=== PATIENT | male | born 1950 | race Hispanic/Latino ===

== ENCOUNTER → 2017-03-03 | Day surgery (SDC) | payer OTHER, MEDICARE ==
--- NOTE | 2017-02-25 16:21 | PCM.ANEPRE ---
Anesthesia Pre-Op Review Reason for Review: CARDIAC HX-DEVELOPING ELDRIDGE/ANGINA RECENTLY Anesthesia Recommendations: Proceed with Procedure Additional Comments 66 y/o male with significant h/o CAD and hemorrhoids scheduled for internal hermorrhoidectomy on 03/03/17. S/p cardiac cath X 3 with stents in the right coronary artery and left circumflex. Last dean [employer] graduate studies visit on 08/2016 recommended cardiac cath. Last cardiac cath on showed "no new areas of stenosis" and no additional stents placed. Last NM myocardial perfusion stud on 07/24/16 showed EF 72% with no ischemia. Patient has exertional angina , but > 4 Mets. Is able to chop wood and cruz krys of hay. Appears optimized. Continue with surgery as planned pending evaluation by DOS anesthesiologist. Vinay Moulton MD Feb 25, 2017 16:21
[2017-03-03] VITALS (7 sets, daily range): BP systolic 105–134; BP diastolic 59–75; PULSE 51–78; RESP 8–17; O2SAT 95–100
[~2017-03-03] VITALS: Ht 188 cm; Wt 100.5 kg
[~2017-03-03] MED LIST: ASPI-973 PO; Bupivacaine-MPF 0.5% W/EPI 30 mL Inj INFILTRATE ONE; Dexamethasone 4 mg/mL Inj IVPUSH PRN; Dexamethasone 4 mg/mL Inj ONE; EPHEDrine Sulfate 50 mg/mL Inj IVPUSH PRN; HYDR30CR74 RC; HYDROmorphone 1 mg/mL Inj IVPUSH PRN; ISOS30TA4 PO; LEVO150T46 PO; Lactated Ringer's 1,000 ML IV ONE; Lactated Ringer's 1,000 ML IV SCH; Lactated Ringer's 500 ML IV PRN; METO50TA3 PO; MULT-666 PO; MetoCLOpramide 5 mg/mL 2 mL Inj IVPUSH PRN; NITR0.4T SL; Ondansetron 2 mg/mL 2 mL Inj IVPUSH PRN; Ondansetron 2 mg/mL 2 mL Inj ONE; POLY17PO6 PO; Phenylephrine 10,000 mCg/mL Inj IVPUSH PRN; Propofol 10,000 mCg/mL 20 mL Inj ONE; RANI300C PO; SIMV10TA4 PO; fentaNYL-PF 50 mCg/mL 2 mL Inj IVPUSH PRN; fentaNYL-PF 50 mCg/mL 2 mL Inj ONE; oxyCODONE-Acetamin 5-325 mg Tablet PO PRN
--- NOTE | 2017-03-03 08:40 | PCM.HPANE ---
Patient Data Date of Service: Mar 03, 2017 (0820) Surgeon Admitting Provider: Attending Provider:Brittany Huynh MD Primary Care Physician:Babatunde Adame MD Other Provider:Mary Kay Heard Anesthesia Reason for Visit Hemorrhoids Ht/WT & BMI Height (Feet): 6 Height (Inches): 2.00 Weight (Kilograms): 100.516 Body Mass Index 28.00 Allergies Coded Allergies: No Known Allergies (Verified , 02/25/17) Past Anesthesia History Anesthesia History: Denies:: Abnormal Airway, Anesthesia Reactions, Difficult Intubation, Fam Anesthesia Reaction, Fam Malignant Hypertherm, Malignant Hyperthermia Diabetes History Hx Diabetes?: No MRSA MRSA: No Medications Blood Thinner: Aspirin Home Meds Incl Beta Davey: Yes (mETROPOL) Date Beta Davey Taken: Mar 03, 2017 Time Beta Davey Taken: 0500 Reported Medications Hydrocortisone (Proctozone-Hc)30 Gm Cream.appl30 Gm RC BID PRN & PRN 02/25/17 Polyethylene Glycol 3350 (Miralax)17 Gm Powd.pack17 Gm PO DAILY 02/25/17 Isosorbide MN ER 30 Mg Tab.er.24h30 Mg PO DAILY 02/25/17 Nitroglycerin SL (Nitrostat)0.4 Mg Tab.subl0.4 Mg SL Q5MIN PRN ANGINA #1 BOTTLE 02/25/17 Simvastatin 10 Mg Dhjiup47 Mg PO HS Ref 0 10/19/16 Ranitidine 300 Mg Xldlztn654 Mg PO HS Ref 0 09/02/15 Multivitamin (Once Daily)1 Each Tablet1 Each PO DAILY 09/02/15 Metoprolol Tartrate 50 Mg Arluee50 Mg PO BID 30 Days Ref 0 09/02/15 Levothyroxine (Levoxyl)150 Mcg Rdzfdv709 Mcg PO DAILY Ref 0 09/02/15 Aspirin 81 Mg Zyfnzl619 Mg PO DAILY Ref 0 09/02/15 History History of ENT Problems?: No HEENT History: Positive for:: Dysphagia (HX OF) Denies:: Abnormal Airway Difficult Intubation Hearing Problem Denture Type: None Teeth Condition: Within Normal Limits Hx of Heart Problems?: Yes (currently asymptomatic. METS>4 EF 70%) Cardiovascular History: Positive for:: Cardiac Surgery (HEART CATH X3 (LAST ) STENTS RT CORONARY/LT CIRCUMFLEX) Chest Pain (ANGINA-DEVELOPED OVER LAST FEW MONTHS) Coronary Artery Disease (HX AL 2009) Hypertension (HYPERLIPIDEMIA) Valvular Heart Disease (MILD [place]) Denies:: AICD Atrial Fibrillation Heart Murmur (ECHO 09/2010 EF 50-55%) Irregular Heartbeat (PT REPORTS PALPITATIONS) Pacemaker Hx of Respiratory Problem?: Yes Respiratory History: Positive for:: Dyspnea (ELDRIDGE-DEVELOPED OVER LAST FEW MONTHS W/ ANGINA) Denies:: Use of C-PAP Machine Hx Neurologic Problems?: No Neurological History: Denies:: CVA Dementia Hx of GI Problems?: Yes Other GI Pertinent History: HX COLON POLYPS/TUBULAR ADENOMAS C/OF CHRONIC CONSTIPATION Hx of Problems?: No Male Hx: Denies:: Prostate Problems Scrotal Mass Testicular Surgery Skin History: Denies:: History Skin Disorders? Pressure Ulcers Hx Musculoskeletal Problems?: Yes Musculoskeletal History: Positive for:: Musculoskeletal Trauma (S/P RT WRIST RPR (?CTR),RT ROTATOR CUFF RPR HX FX ARM-CHILDHOOD) Denies:: Back Injury (C/OF LOWER BACK PAIN) Joint Replacement Hx of Psycho/Social Problems?: No Psycho Social History: Denies:: Anxiety Hx Depression Hx Surgeries?: Yes (CARPAL TUNNEL THYROIDECTOMY, RT WRIST, RT SHOULDER, HEMORRHOIDECTOMY,HEART ) Hx Any Other Health Problems?: Yes Other History: Positive for:: Cancer (FOLLICULAR LYMPHOMA, THYROID) Hospitalization (CARDIAC) Thyroid Disease (S/P RT THYROIDECTOMY FOR CA) Denies:: Endocrine Disease History Blood Transfusions: Denies:: Blood Transfusions Hx Diabetes: No Hx Alcohol Use: YesAlcoholic Drinks Per Day: 2/DAYHx Substance Use: No Smoking Status: Never Smoker Have You Smoked inLast 12 mo: No Stop/Bang S-Snoring: Do You Snore Loudly: No T-Tired: feel tired, fatigued: No O-Obsered: Observed not breath: No P-Blood Pressure: treated: Yes B- Body Mass Index > 35 kg/m2: No A- Age over 50: Yes N- Neck Large Circumference: No G- Gender Male: Yes COMFORT Total Score: 3 COMFORT Risk Assessment: Low Risk, <3 Yes Risk Assessment Category Category 1A: Patient has history of documented sleep apnea, and HAS NOT received any narcotic, sedative or anesthesia administration during this stay. Category 1B: Patient has history of documented sleep apnea, and HAS received any narcotic , sedative or anesthesia administration during this stay Category 2: Patient has SUSPECTED Obstructive Sleep Apnea, and HAS received any narcotic , sedative or anesthesia administration during this stay. Category 3: Patient has SUSPECTED Obstructive Sleep Apnea and HAS NOT received narcotic, sedative or anesthesia administration during this stay. Category 4: Outpatient in Procedural Areas with known sleep apnea or who screen positive for High Risk via the STOP/BANG questionnaire. Exam Exam Vital Signs Vital Signs Date Time Temp Pulse Resp B/P Pulse Ox O2 Delivery O2 Flow Rate FiO2 03/03/17 06:49 35.7 58 17 121/75 95 Room Air General Appearance: Alert, Oriented X3, Cooperative HEENT/AIRWAY: MP 1 Lungs: Clear to Auscultation Heart: Exam Unremarkable Meds/Labs/Diagnostics Admission Meds Current Medications Lactated Ringer's (Lr) 1,000 ml @ ud STK-MED ONCE IV Last administered on 03/03t 07:07; Start 03/03/17 at 07:07; Stop 03/03/17 at 07:08; Status DC Plan Impression Patient chart reviewed, patient interviewed and anesthestic plan with risks, benefits, and alternatives discussed, and informed consent obtained. NPO per Anesth. Guidelines: Yes ASA Physical Status: ASA2 Mod Systemic Disease Anesthetic Plan: GA Bene/Risks/Altern/Consents: Yes HP Complete Prior to Induction: Yes Damian Ruiz MD Mar 03, 2017 08:39
--- NOTE | 2017-03-03 09:08 | PCM.ANEP1 ---
Post Anesthesia PACU Phase 1 Assessment Vital Signs 36.3, 54, 12, 108/59, 97% Vital Signs Date Time Temp Pulse Resp B/P Pulse Ox O2 Delivery O2 Flow Rate FiO2 03/03/17 09:03 36.3 58 8 108/59 97 Simple Mask 8 03/03/17 06:49 35.7 58 17 121/75 95 Room Air Anesthetic Administered: GA Level of Alertness: Awake, talking GIBSON's with Equal Strength: Yes Pain: No Pain Scale Score: 0 Nausea or Vomiting: No CV Function & Hydration Stable: Yes Airway Device: none Oxygen Delivery: Simple Mask Lungs: Clear to Auscultation Dermatome Level: Full Sensation Summary uneventful GA PACU Phase 2 Assessment Complications: No Follow up Care: No Patient Instructions Provided: N/A Damain Ruiz MD Mar 03, 2017 09:08
--- NOTE | 2017-03-03 10:03 | OP ---
[address] [address] OPERATIVE REPORT PATIENT: ROZ MICHEL : 1950 MR#: [id number] ADMIT: 03/03/2017 JOB ID: [id number] DATE OF SURGERY: 03/03/2017 PREOPERATIVE DIAGNOSIS(ES): Symptomatic internal hemorrhoids. POSTOPERATIVE DIAGNOSIS(ES): Symptomatic internal hemorrhoids. PROCEDURE PERFORMED: Internal hemorrhoidectomy x3. SURGEON: Brittany Huynh MD MUSEUM OR ZOO DIRECTOR: Fuad Platt PA-C HISTORY OF PRESENT ILLNESS: This is a 66-year-old man, who was seen in the outpatient clinic with hemorrhoidal symptoms, particularly pain, bleeding, and prolapse with occasional manual reduction. This was refractory to conservative measures including laxatives and avoidance of spending long periods of time on the toilet. He had also tried topical hemorrhoidal creams without affect. Banding was attempted in the clinic. However, his hemorrhoids had a wide base and therefore the bands could not be effective. Therefore, examination under anesthesia was booked. FINDINGS: 1. Three enlarged internal hemorrhoids at the right posterolateral, left posterolateral, and left anterolateral positions. 2. Tiny anal fissure at the anterior midline. 3. Tiny external hemorrhoidal skin tags. DESCRIPTION OF PROCEDURE: The patient was brought to the operating room and placed in supine position. General anesthesia was induced. A warming blanket was placed. He was placed in high lithotomy position. The operative field was prepped and draped in sterile fashion. A pause was performed to confirm the correct patient, procedure, and site. External examination revealed external hemorrhoidal skin tags which were small, and a posterior midline anal fissure. A digital rectal examination was performed and was normal. A retractor was inserted and revealed several internal hemorrhoids which were enlarged and moderately friable. The largest of these were removed with a Precise LigaSure device, with preservation of the sphincters. The three that were removed were at the right posterolateral position, left posterolateral position, and left anterolateral position. Each of these was approximately 1.5 cm in size. They were discarded. Marcaine, 0.5%, with epinephrine was then infused in the subcutaneous tissue around the anus. The patient was awakened from general anesthesia and taken to postoperative care unit in good condition. ASSESSMENT: Hemorrhoids, discarded. COMPLICATIONS: None. ESTIMATED BLOOD LOSS: None.
== END | disposition home or self-care (01) ==
LOC: SAS 06:22
PROVIDERS: ATTEND Surgery
DX: K64.2 Third degree hemorrhoids (principal); I25.10 Atherosclerotic heart disease of native coronary artery without angina pectoris; E78.5 Hyperlipidemia, unspecified; I25.2 Old myocardial infarction; Z79.82 Long term (current) use of aspirin
CPT/HCPCS: 46255; J1100; J1885; J2250; J2405; J3010; J7120